=== PATIENT | male | born 1945 | race Caucasian/White ===

== ENCOUNTER 2017-02-04 06:41 | Day surgery (SDC) | payer MEDICARE ==
[2017-01-31 16:04] LABS: HEMATOCRIT 46.4 % (40.0-51.0); HEMOGLOBIN 15.6 g/dL (13.6-17.8)
[2017-01-31 16:14] LABS: BUN (BLOOD UREA NITROGEN) 25 MG/DL (6-23); CALCIUM, SERUM 8.8 MG/DL (8.5-10.4); CHLORIDE, SERUM 104 MMOL/L (96-112); CO2 (CARBON DIOXIDE) 30 MMOL/L (24-34); CREATININE 1.58 MG/DL (0.70-1.30); GFR AFRICAN AMERICAN 51 ML/MIN (>=60); GFR NON AFRICAN AMERICAN 44 ML/MIN (>=60); GLUCOSE, SERUM 179 MG/DL (60-99); POTASSIUM, SERUM 4.1 MMOL/L (3.5-5.3); SODIUM, SERUM 141 MMOL/L (135-148)
--- NOTE | ~2017-02-04 | OP ---
Record Of Operation [facility] [address] [place]. [address] NAME: CELSA RUSSELL : 47 STATUS : REG [facility] [place] PAT#: [id number] AGE: 71 ADM/REG DATE : 02/04/17 MR#: [id number] REPORT SERV DATE: 02/04/17 DICTATED BY: Dougie GOMEZ DATE: 02/04/17 REPORT STATUS : Draft TRANSCRIBED BY: MODL DATE: 02/04/17 DATE OF PROCEDURE: 02/04/2017 PREOPERATIVE DIAGNOSES: Gross hematuria with indeterminate prostatic urethral lesion, possible bladder lesions. POSTOPERATIVE DIAGNOSIS: Benign prostatic hyperplasia. PROCEDURE: Cystoscopy, bilateral retrograde pyelography, clot evacuation, biopsy of prostatic urethra, fulguration, and examination under anesthesia. ANESTHESIA: General with LMA. COMPLICATIONS: None. DRAINS: A 22-Kinyarwanda two-way Garcia catheter. BRIEF HISTORY: Mr. Russell is a 71-year-old white male who presented recently with gross hematuria. He did not have an infection. CT urogram showed no evidence of stone, mass, or obstruction. His cytology was negative. Office cystoscopy revealed a papillary-appearing lesion in the [id number] prostatic urethra on the left. He had a large prostate gland and it was decided to proceed with biopsy under anesthesia and further investigation. DESCRIPTION OF PROCEDURE: Under excellent general and monitored anesthesia, the patient was prepped and draped in a standard lithotomy. Preliminary examination revealed a normal- appearing circumcised penis. The prostate was 3+, symmetric, smooth. A cystoscopy was performed with 30 and 70-degree lens and revealed a normal anterior urethra. The posterior urethra showed trilobar BPH with a papillary-appearing lesion of left prostatic fossa. Inspection of the bladder revealed a large plane with intravesical protrusion. The orifices were hard to see, but I was able to cannulate the right orifice fairly easily and showed a normal ureter that was somewhat medially displaced in the mid ureter. No filling defects or obstruction were noted. Similarly, the left ureter, which was much more difficult to cannulate due to his prostate, was seen and a normal-caliber ureter without filling defect or obstruction was noted. I saw no bladder lesions, and after biopsying the prostatic urethra, suitable fulguration was needed. Finally, I controlled the bleeding and a 22- Kinyarwanda two-way Garcia catheter was placed. I plan to discharge the patient with the following instructions. DISCHARGE INSTRUCTIONS: 1. Home today with Garcia catheter. 2. Pyridium 200 mg one p.o. t.i.d. p.r.n. bladder pain, #15. 3. Remove Saturday my office per the patient. 4. Follow up in my office in one week to review pathology. Record Of [address] [place] [id number] NAME: CELSA RUSSELL : 47 STATUS : REG [facility]#: [id number] AGE: 71 ADM/REG DATE : 02/04/17 MR#: [id number] REPORT SERV DATE: 02/04/17 DICTATED BY: Dougie GOMEZ DATE: 02/04/17 REPORT STATUS : Draft TRANSCRIBED BY: MOSHE DATE: 02/04/17 MONTSE/MOSHE Dougie Gomez M.D. / [id number] CC: Jose Juan Gonzalez M.D.
[~2017-02-04 06:41] MED LIST: ALEVE220 MG PO; ALLEGRA180 PO; ASA5GR PO; ATEN25 PO; COLCH6 PO; COZ50 PO; DIOV160 PO; FLOMAX4 PO; FLORASTOR250 MG PO; GLUCOPHAGE1000 MG PO; INDO50 PO; JANUVIA50 PO; LIPITOR80 MG PO; LISINOPRIL40 MG PO; NORCO1 TA1 PO; PRAVACHOL40 MG PO; PRIN20 PO; RAPAFLO8 MG PO; REFRESH PLUS O0.4 ML OP; SULAR34 MG PO; SYSTANE OP; TESSALON200 MG PO; ULTRAM50 PO; Z300 PO
== END 2017-02-04 17:35 | disposition home or self-care (01) ==
LOC: SDC 06:41
PROC: 0T5D8ZZ Destruction of Urethra, Via Natural or Artificial Opening Endoscopic (ICD-10-PCS; principal; 2017-02-04 07:45)
DX: N30.90 Cystitis, unspecified without hematuria (principal); N40.0 Benign prostatic hyperplasia without lower urinary tract symptoms; I10 Essential (primary) hypertension; E11.9 Type 2 diabetes mellitus without complications; M10.9 Gout, unspecified; M19.90 Unspecified osteoarthritis, unspecified site; Z88.1 Allergy status to other antibiotic agents; Z88.8 Allergy status to other drugs, medicaments and biological substances; Z91.048 Other nonmedicinal substance allergy status; Z90.89 Acquired absence of other organs; Z96.1 Presence of intraocular lens; Z98.41 Cataract extraction status, right eye; Z98.42 Cataract extraction status, left eye; Z87.01 Personal history of pneumonia (recurrent); Z86.73 Personal history of transient ischemic attack (TIA), and cerebral infarction without residual deficits; Z87.442 Personal history of urinary calculi; Z79.82 Long term (current) use of aspirin; Z79.899 Other long term (current) drug therapy; Z98.890 Other specified postprocedural states
CPT/HCPCS: 74420; 80048; 82962; 85014; 85018; 88305; 93005; A9270-GY; J2370; J2405; J3010; Q9967